=== PATIENT | female | born 2000 | race Caucasian/White ===

== ENCOUNTER 2024-06-09 20:20 | Emergency (ER) | payer OTHER ==
[~2024-06-09] VITALS: Ht 157.5 cm; Wt 72.1 kg
[2024-06-09 20:31] VITALS: BP 140/84; PULSE 100; RESP 16; TEMP 98.1; O2SAT 100
[2024-06-09] MEDS: METOCLOPRAMIDE 10 MG/2 ML INJ VIAL IM ONE (21:35)
[2024-06-09] MEDS: ACETAMINOPHEN EXTRA STRENGTH 500 MG TAB PO ONE (21:38)
[2024-06-09] MEDS: KETOROLAC 30 MG/ML VIAL IM ONE (21:38)
[2024-06-09 22:47] LABS: APPEARANCE,URINE CLEAR (CLEAR); BILIRUBIN,URINE NEGATIVE (NEGATIVE); BLOOD, URINE NEGATIVE (NEGATIVE); COLOR,URINE YELLOW (YELLOW); LEUKOCYTE ESTERASE ,URINE TRACE (NEGATIVE); NITRITE, URINE NEGATIVE (NEGATIVE); PROTEIN,URINE NEGATIVE (NEGATIVE); UGLUCOSE NEGATIVE (NEGATIVE); UROBILINOGEN,URINE 0.2 EU/dL (0.2 - 1)
[2024-06-09 22:53] LABS: BACTERIA,URINE 10-30 (MOD) /HPF (None Seen); MUCUS,URINE 1+ /LPF (None Seen); RBC,URINE 0-5 /HPF (0-5); SQUAMOUS EPITHELIAL CELL,UR 4-10 (MOD) /LPF (0-3 (FEW))
[2024-06-09 23:26] VITALS: BP 122/74; PULSE 100; RESP 16; TEMP 98.1; O2SAT 100
== END 2024-06-09 23:26 | disposition home or self-care (01) ==
LOC: MED 20:20
DX: R51.9 Headache, unspecified (principal)
CPT/HCPCS: 81001; 81025; 87086; 96372; 99284; J1885; J2765